=== PATIENT | female | born 1995 | race Caucasian/White ===

== ENCOUNTER 2017-10-27 19:53 | Emergency (ER) | payer OTHER ==
[2017-10-27] MEDS ORDERED: Acetaminophen TAB* 325 MG PO ONE (20:11)
[2017-10-27] MEDS ORDERED: methylPREDNISolone 125 MG* 2 ML VIAL IV ONE (20:47)
[2017-10-27] MEDS ORDERED: NS 0.9% 1000 ML* 1,000 ML IV ONE (20:50)
--- NOTE | 2017-10-27 20:51 | UC ---
Nelli Gong Nilda, scribed for Rosamaria Spann MD on 10/27/17 at 2020 . Throat Pain/Nasal Gregg HPI - HPI Summary HPI Summary: This patient is a 21 year old F presenting to [facility] with a chief complaint of constant severe left-sided sore throat since this morning. The patient rates the aching pain 10/10 in severity. Symptoms aggravated by swallowing and alleviated by ibuprofen (2 tabs) taken at 1630 for fever and pain. Patient reports fever (101.4F), headache, chills, myalgia, L-ear pain with possible drainage, loss of appetite, and nausea. Patient denies V/D and cough. Pt states recent sick contacts at [employer] where she works. No rash. + fatigue. Allergies to Sulfa drugs. LNMP last week. Patients medication reviewed this visit. - History of Current Complaint Chief Complaint: UCRespiratory Stated Complaint: ACHES,CHILLS,EAR,THROAT PAIN Time Seen by Provider: 10/27/17 20:11 Hx Obtained From: Patient Hx Last Menstrual Period: last week ?: No Onset/Duration: Sudden Onset, Lasting Days, Still Present Severity: Severe Pain Intensity: 10 Pain Scale Used: 0-10 Numeric Cough: None Associated Signs & Symptoms: Positive: Other - fever (101.4F), headache, chills , myalgia, L-ear pain with possible drainage, loss of appetite, and nausea. Patient denies V/D and cough. - Allergies/Home Medications Allergies/Adverse Reactions: Allergies Allergy/AdvReac Type Severity Reaction Status Date / Time Sulfa (Sulfonamide Allergy Hives Verified 10/27/17 20:02 Antibiotics) Home Medications: Home Medications Bcp 1 tab PO DAILY 10/27/17 [History Confirmed 10/27/17] Ibuprofen [Goodsense Ibuprofen] 400 mg PO Q8HR PRN 10/27/17 [History Confirmed 10/27/17] PMH/Surg Hx/FS Hx/Imm Hx Previously Healthy: Yes - Surgical History Surgical History: Yes Surgery Procedure, Year, and Place: wisdom - Family History Known Family History: Negative: Cardiac Disease, Hypertension, Diabetes - Social History Occupation: Employed Part-time, Student Lives: With Family Alcohol Use: Rare Substance Use Type: None Smoking Status (MU): Never Smoked Tobacco - Immunization History Vaccination Up to Date: Yes Review of Systems Constitutional: Fever, Chills ENT: Sore Throat, Ear Ache - with drainage (left) Respiratory: Other - negative cough Gastrointestinal: Nausea, Other - loss of appetite; negative V/D Musculoskeletal: Myalgia Neurological: Headache All Other Systems Reviewed And Are Negative: Yes Physical Exam Triage Information Reviewed: Yes Appearance: Well-Nourished, Other: - tired apperaing, face flushed Vital Signs: Initial Vital Signs Temp 103.6 F 10/27/17 20:04 Pulse 118 10/27/17 20:04 Resp 18 10/27/17 20:04 BP 136/82 10/27/17 20:04 Pulse Ox 99 10/27/17 20:04 Vital Signs Reviewed: Yes Eye Exam: Normal Eyes: Positive: Conjunctiva Clear ENT: Positive: Other - left TM + fluid, mild erythema right TM wnl turbinates inflammed and boggy + PND + tonsillar edema no exudate uvula midline Dental Exam: Normal Neck: Positive: Supple, Nontender. Negative: No Lymphadenopathy - + submand LA L>R Respiratory Exam: Normal Respiratory: Positive: Chest non-tender, Lungs clear, Normal breath sounds, No respiratory distress, No accessory muscle use Cardiovascular: Positive: RRR, No Murmur, Pulses Normal, Brisk Capillary Refill , Tachycardia Abdominal Exam: Normal Abdomen Description: Positive: Nontender, No Organomegaly, Soft Bowel Sounds: Positive: Present Musculoskeletal Exam: Normal Musculoskeletal: Positive: Strength Intact Neurological Exam: Normal Neurological: Positive: Alert Psychological Exam: Normal Skin: Positive: Other - face flushed, warm Re-Evaluation - Re-Evaluation First Eval Re-Evaluation Time: 21:03 Comment: Pt declined viscous lidocaine. Updated mother on results and treatment plan. Pt tolerating popsicle and peanut butter cu p Second Eval Change: Improved - Pt markedly improved temp improved, still with mylagia low back and legs will Rx zithromax (no pcn in case + mono) reviewwed motrin/apap prednisone return precaution school/worl note secretion precaution mom and pt comfortable and in agreement with plan Throat Pain/Nasal Course/Dx - Course Course Of Treatment: pt presents with fever, sore throat, left ear pain, myalgia. left OM on exam. Pt with tonsillar edema but no concern for airway compromise. Will give IVF, steroid, antipyretic, zofran. lab for mono, cbc. abx. close reassessment - Differential Dx/Diagnosis Provider Diagnoses: left OM. pharyngitis. fever. myalgias Discharge - Sign-Out/Discharge Documenting (check all that apply): Discharge - Discharge Plan Condition: Stable Disposition: HOME Prescriptions: Azithromycin TAB* [Zithromax TAB (Z-DIANE) 250 mg #6 tabs] 500 mg PO DAILY #12 tab predniSONE TAB* [Deltasone TAB*] 40 mg PO DAILY #8 tab Patient Education Materials: Fever in Adults (ED), Ear Infection (ED) Forms: *School Release, *Work Release Referrals: Taran Castillo MD [Primary Care Provider] - Additional Instructions: - Stay well hydrated. Drink plenty of non-alcoholic, non-caffinated beverages. Cold foods / beverages may be soothing to your throat - Alternate ibuprofen (Advil, Motrin) 600mg and Tylenol 1000mg every 3 hours for pain or fever. Take with food. Do NOT take for more than 4-5 days. - These infections are spread by secretions - do NOT share eating or drinking utensils - clean items you share with other people such as cell phones, computer mouse, TV remote, computer tablets,etc. After you have been on antibiotics for 2 days, change your toothbrush and your pillowcase. - get plenty of restful sleep - humidify the air in the room where you sleep - boil water, run a hot steam shower, vaporizer, cups of water by heat register - okay to take over the counter decongestant and cough medication - gargle and spit with warm salt water - Take antibiotics as prescribed until gone - contact your doctor to schedule a follow-up appointment. Contact your doctor , return here or go to the emergency department with ANY questions or concerns - Billing Disposition and Condition Condition: STABLE Disposition: HOME The documentation as recorded by the Nelli santos Nilda accurately reflects the service I personally performed and the decisions made by me, Rosamaria Spann MD.
[2017-10-27] MEDS: Lidocaine 2% VISCOUS* 15 ML UDC PO ONE ×2 (20:59→21:15)
[2017-10-27] MEDS ORDERED: Azithromycin TAB* 250 MG PO ONE (21:32)
[2017-10-27 21:48] VITALS: BP 129/73
[2017-10-28 10:50] LABS: ABS Basophils 0 10^3/ul (0-0.2); ABS Eosinophils 0 10^3/ul (0-0.6); ABS Lymphocytes 1.1 10^3/ul (1.0-4.8); ABS Monocytes 0.8 10^3/ul (0-0.8); ABS Neutrophils 12.7 10^3/ul (1.5-7.7); ABS Nucleated RBC 0 10^3/ul; Eosinophil % 0.2 % (0-6); Hematocrit 41 % (35-47); Hemoglobin 14.1 g/dl (12.0-16.0); Lymphocyte % 7.7 % (25-47); Mean Corpuscular HGB Conc 34 g/dl (31-36); Mean Corpuscular Hemoglobin 29 pg (27-31); Mean Corpuscular Volume 86 fL (80-97); Mean Platelet Volume 8.9 um3 (7.4-10.4); Nucleated Red Blood Cells % 0.1; Platelet Count 230 10^3/ul (150-450); Red Blood Count 4.78 10^6/ul (4.0-5.4); Red Cell Distribution Width 13 % (10.5-15); White Blood Count 14.8 10^3/ul (3.5-10.8)
== END 2017-10-27 22:05 | disposition home or self-care (01) ==
LOC: UCEAST 19:53
DX: J02.9 Acute pharyngitis, unspecified (principal); R50.9 Fever, unspecified; R51 Headache; M79.1 Myalgia; H92.02 Otalgia, left ear; R11.0 Nausea; Z88.2 Allergy status to sulfonamides
CPT/HCPCS: 36415; 85025; 86308; 87502; 87651; 96374; 99212; A9270-GY; G0463; J2930

== ENCOUNTER 2018-04-27 09:33 | Emergency (ER) | payer BC, OTHER ==
[2018-04-27 09:51] VITALS: BP 117/75
--- NOTE | 2018-04-27 11:10 | ED ---
Throat Pain/Nasal Congestion - HPI Summary HPI Summary: Patient here with URI symptoms 4 days. Reports she started with nasal congestion Thursday night which progressed the following day into sinus pain and pressure and a sore throat. She is now having difficulty hearing out of her ears due to congestion but no otorrhea or sharp pain and no reports of issues with balance. She had an episode of vomiting Thursday night - possibly from postnasal drip and congestion. Denies any nausea, vomiting, diarrhea since. She also denies neck stiffness, chest pain, cough, shortness of breath, difficult deep breathing, abdominal pain, rash, joint aches. 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 She tried ibuprofen which helped with her sinus pain and pressure but has not tried any other remedies at this time. Immunizations are up-to-date. - History of Current Complaint Chief Complaint: UCGeneralIllness Time Seen by Provider: 04/27/18 10:50 Hx Obtained From: Patient - Allergies/Home Medications Allergies/Adverse Reactions: Allergies Allergy/AdvReac Type Severity Reaction Status Date / Time Sulfa (Sulfonamide Allergy Hives Verified 04/27/18 09:44 Antibiotics) PMH/Surg Hx/FS Hx/Imm Hx Previously Healthy: Yes Endocrine/Hematology History: Denies: Hx Diabetes, Hx Thyroid Disease Cardiovascular History: Denies: Hx Hypertension, Hx Pacemaker/ICD Respiratory History: Denies: Hx Asthma, Hx Chronic Obstructive Pulmonary Disease (COPD) GI History: Denies: Hx Ulcer Musculoskeletal History: Denies: Hx Arthritis, Hx Rheumatoid Arthritis, Hx Osteoporosis Sensory History: Denies: Hx Hearing Aid Psychiatric History: Denies: Hx Panic Disorder - Surgical History Surgery Procedure, Year, and Place: wisdom teeth removal. cysts removed from scalp- 2016 - Immunization History Immunizations Up to Date: Yes Infectious Disease History: No Infectious Disease History: Denies: Hx Clostridium Difficile, Hx Hepatitis, Hx Human Immunodeficiency Virus (HIV), Hx of Known/Suspected MRSA, Hx Shingles, Hx Tuberculosis, Hx Known/ Suspected VRE, Hx Known/Suspected VRSA, History Other Infectious Disease, Traveled Outside the [place] in Last 30 Days - Family History Known Family History: Negative: Cardiac Disease, Hypertension, Diabetes - Social History Occupation: Employed Full-time - daycare provider Lives: With Family Alcohol Use: Occasionally Hx Substance Use: No Substance Use Type: Reports: None Hx Tobacco Use: No Smoking Status (MU): Never Smoked Tobacco Review of Systems Constitutional: Negative Negative: Fever, Chills, Fatigue Eyes: Negative Positive: Sore Throat, Ear Ache, Nasal Discharge Cardiovascular: Negative Respiratory: Negative Gastrointestinal: Negative Positive: no symptoms reported Musculoskeletal: Negative Skin: Negative Neurological: Negative Psychological: Normal All Other Systems Reviewed And Are Negative: Yes Physical Exam Triage Information Reviewed: Yes Vital Signs On Initial Exam: Initial Vitals Temp Pulse Resp BP Pulse Ox 98.3 F 97 20 117/75 99 04/27/18 09:45 04/27/18 09:45 04/27/18 09:45 04/27/18 09:45 04/27/18 09:45 Vital Signs Reviewed: Yes Appearance: Positive: Well-Appearing, No Pain Distress, Well-Nourished Skin: Positive: Warm, Skin Color Reflects Adequate Perfusion, Dry - no rash, especially on hands, feet and in mouth Head/Face: Positive: Normal Head/Face Inspection Eyes: Positive: Normal, EOMI, Conjunctiva Clear. Negative: Conjunctiva Inflammed, Discharge ENT: Positive: Hearing grossly normal, Pharyngeal erythema - cobblestoning (mild ) - pink w/ streaking of erythema - no maurice edema, Nasal congestion, TM dull - clear but retracted w/ air bubbles, Uvula midline. Negative: Nasal drainage, Tonsillar swelling, Tonsillar exudate, Trismus, Muffled voice, Hoarse voice, Sinus tenderness Neck: Positive: Supple, Nontender, No Lymphadenopathy Respiratory/Lung Sounds: Positive: Clear to Auscultation, Breath Sounds Present. Negative: Rales, Rhonchi, Wheezes Cardiovascular: Positive: Normal, RRR, S1, S2. Negative: Murmur, Rub Abdomen Description: Positive: Nontender, No Organomegaly, Soft Bowel Sounds: Positive: Present Musculoskeletal: Positive: Normal, Strength/ROM Intact Neurological: Positive: Normal, Sensory/Motor Intact, Alert, Oriented to Person Place, Time, CN Intact II-III Psychiatric: Positive: Normal Diagnostics - Vital Signs Vital Signs Temp Pulse Resp BP Pulse Ox 04/27/18 09:45 98.3 F 97 20 117/75 99 - Laboratory Lab Statement: Any lab studies that have been ordered have been reviewed, and results considered in the medical decision making process. EENT Course/Dx - Course Course Of Treatment: Suspect viral URI - rapid strep neg. Supportive care w/ f/ u PRN. Danger s/sx reviewed. - Diagnoses Provider Diagnoses: URI (upper respiratory infection) Discharge - Sign-Out/Discharge Documenting (check all that apply): Patient Departure All imaging exams completed and their final reports reviewed: No - Discharge Plan Condition: Stable Disposition: HOME Patient Education Materials: Upper Respiratory Infection (ED) Forms: *Work Release Referrals: Taran Castillo MD [Primary Care Provider] - Additional Instructions: You appear to have a viral infection, This may last 7-14 days. Try the following for relief of congestion: *Nasal wash (netti pot or saline spray) & salt water throat gargles 2 x day *Sudafed *if these are not effective, try Afrin - follow instructions to avoid rebound swelling Drink you body weight in ounces of water every day Sleep 8+ hours per night Avoid Dairy and sugar Hot herbal/decaf tea with lemon & honey Chicken broth (preferably organic, free range chicken) Humidifier in house, but especially near bed at night Keep home temperature at 68F or less to reduce dryness Use cough drops/throat lozenges Try a facial steam with or without eucalyptus essential oil or Javad's Vapor rub for congestion Avoid smoke, candles, perfumes, colognes, scented soaps/detergents , air fresheners and cleaning chemicals as these can cause airway irritation and trigger coughing If worse or symptoms persist beyond 14 days, follow-up with PCP or seek alternative medical attention (ie. urgent care, ED) - Billing Disposition and Condition Condition: STABLE Disposition: Home
--- NOTE | 2018-04-28 12:34 | UC ---
- Progress Note Progress Note: No studies Course/Dx - Diagnoses Provider Diagnoses: URI (upper respiratory infection) Discharge - Sign-Out/Discharge Documenting (check all that apply): Post-Discharge Follow Up All imaging exams completed and their final reports reviewed: No Studies - Discharge Plan Condition: Stable Disposition: HOME Patient Education Materials: Upper Respiratory Infection (ED) Forms: *Work Release Referrals: Taran Castillo MD [Primary Care Provider] - Additional Instructions: You appear to have a viral infection, This may last 7-14 days. Try the following for relief of congestion: *Nasal wash (netti pot or saline spray) & salt water throat gargles 2 x day *Sudafed *if these are not effective, try Afrin - follow instructions to avoid rebound swelling Drink you body weight in ounces of water every day Sleep 8+ hours per night Avoid Dairy and sugar Hot herbal/decaf tea with lemon & honey Chicken broth (preferably organic, free range chicken) Humidifier in house, but especially near bed at night Keep home temperature at 68F or less to reduce dryness Use cough drops/throat lozenges Try a facial steam with or without eucalyptus essential oil or Javad's Vapor rub for congestion Avoid smoke, candles, perfumes, colognes, scented soaps/detergents , air fresheners and cleaning chemicals as these can cause airway irritation and trigger coughing If worse or symptoms persist beyond 14 days, follow-up with PCP or seek alternative medical attention (ie. urgent care, ED) - Billing Disposition and Condition Condition: STABLE Disposition: Home
== END 2018-04-27 11:48 | disposition home or self-care (01) ==
LOC: UCEAST 09:33
DX: J06.9 Acute upper respiratory infection, unspecified (principal); Z88.2 Allergy status to sulfonamides
CPT/HCPCS: 87651; 99211; G0463

== ENCOUNTER 2018-10-21 11:21 | Emergency (ER) | payer BC ==
[2018-10-21 14:10] VITALS: BP 115/80
--- NOTE | 2018-10-21 14:38 | UC ---
Abdominal Pain Female HPI - HPI Summary HPI Summary: 22 y/o female presents the urgent care c/o LLQ acute abdominal pain for the past 3 days. Pt reports it is intermittent and stabbing at time. Pain now is 6/ 10. But over night it was like a 9/10 and kept her awake. She ate normally this morning and has been drinking fluids, and had a normal BM. Her Mother gave her a muscle relaxer think it was muscular, but pain didn't improved. LMP: 2018 w/ regular menstrual cycles. Pt had nausea w/ no vomiting the first 2 days , but it resolved today. Pt Pt is sexually active, but not taking any OCP. Pt denies fever, STD's SOB, chest pain, abdominal pain, urinary symptoms, vaginal discharge, blood in the stool - History of Current Complaint Chief Complaint: UCGU Stated Complaint: LT SIDE STOMACH PAIN Time Seen by Provider: 10/21/18 14:10 Hx Obtained From: Patient Hx Last Menstrual Period: 10/01/18 Onset/Duration: Gradual Onset, Lasting Days - 3 days, Still Present, Worse Since - last night Timing: Intermittent Episodes Lasting: - minutes Severity Initially: Mild Severity Currently: Moderate Pain Intensity: 6 Pain Scale Used: 0-10 Numeric Location: Discrete At: LLQ Radiates: No Character: Sharp, Other - stabbing at times Aggravating Factor(s): Other: - after she urinates or have a BM Alleviating Factor(s): Nothing Associated Signs and Symptoms: Positive: Nausea. Negative: Diaphoresis, Fever, Cough, Chest Pain, Dizzy, Back Pain, Constipation, Blood in Stool, Urinary Symptoms, Decreased Appetite, Vaginal Bleeding, Vaginal Discharge, Vomiting, Diarrhea Allergies/Adverse Reactions: Allergies Allergy/AdvReac Type Severity Reaction Status Date / Time Sulfa (Sulfonamide Allergy Hives Verified 10/21/18 12:10 Antibiotics) PMH/Surg Hx/FS Hx/Imm Hx Previously Healthy: Yes - Pt deneis PMHX - Surgical History Surgical History: Yes Surgery Procedure, Year, and Place: wisdom teeth removal. cysts removed from scalp- 2016 - Family History Known Family History: Negative: Cardiac Disease, Hypertension, Diabetes Family History: Thyroid cancer - Social History Occupation: Student Lives: With Family Alcohol Use: Occasionally Substance Use Type: None Smoking Status (MU): Never Smoked Tobacco - Immunization History Vaccination Up to Date: Yes Review of Systems All Other Systems Reviewed And Are Negative: Yes Constitutional: Positive: Negative Skin: Positive: Negative Eyes: Positive: Negative ENT: Positive: Negative Respiratory: Positive: Negative Cardiovascular: Positive: Negative Gastrointestinal: Positive: Abdominal Pain - LLQ, Nausea. Negative: Vomiting, Diarrhea Genitourinary: Positive: Frequency. Negative: Vaginal/Penile Burning, Vaginal/ Penile Itching, Vaginal/Penile Discharge, Vaginal/Penile Tenderness, Abnormal Bleeding Motor: Positive: Negative Neurovascular: Positive: Negative Musculoskeletal: Positive: Negative Neurological: Positive: Negative Psychological: Positive: Negative Is Patient Immunocompromised?: No Physical Exam - Summary Physical Exam Summary: Vital Signs Reviewed: Yes General:Patient is a well developed and nourished female who is sitting comfortable in the examining table. Patient is not in any acute respiratory distress. Eyes: Positive: Conjunctiva Clear - PERRLA, EOMI, fundi grossly normal ENT: Positive: Normal ENT inspection, Hearing grossly normal, Pharynx normal, TMs normal Neck: Positive: Supple, Nontender, No Lymphadenopathy Respiratory: Positive: Chest non-tender, Lungs clear, Normal breath sounds, No respiratory distress Cardiovascular: Positive: RRR,S1 and S2 present, No Murmur, Pulses Normal, Brisk Capillary Refill Abdomen Description: Positive: Nontender, Other: - Abd: Flat with no distention. No surface trauma, scars, incisions. hyperactive bowel sounds present in all four quadrants. No tenderness, guarding, rigidity to palpation. No masses palpated, no pulsation in epigastric area. No organomegaly. Negative [place] signs. No periumbilical tenderness. No rebound in the lower quadrants. NT over [place] point. Left side suprapubic tenderness with no distension. Good femoral pulses bilaterally. No hernia noted. No CVAT bilaterally Musculoskeletal: Positive: Strength Intact, ROM Intact, No Edema,FROM in all major joints, no edema, no cyanosis or clubbing. Neuro: Alert and oriented x 3. No acute neurological deficits. Speech is normal. Psychological: WNL Skin: Dry and warm Triage Information Reviewed: Yes Vital Signs: Initial Vital Signs Temp 98.4 F 10/21/18 12:07 Pulse 69 10/21/18 12:07 Resp 17 10/21/18 12:07 BP 117/77 10/21/18 12:07 Pulse Ox 100 10/21/18 12:07 Abd Pain Female Course/Dx - Course Course Of Treatment: Transvaginal US; Impression: There is a trace amount of free to peritoneal fluid in the cul-de-sac.IMPRESSION: NO EVIDENCE FOR OVARIAN TORSION OR ACUTE FINDING. - Differential Dx/Diagnosis Differential Diagnosis: Appendicitis, Ovarian Cyst, , Renal Colic, Urinary Tract Infection Provider Diagnosis: Acute abdominal pain in left lower quadrant, Follicular cyst of ovary, unspecified side Discharge - Sign-Out/Discharge Documenting (check all that apply): Patient Departure - d/C home All imaging exams completed and their final reports reviewed: Yes - Discharge Plan Condition: Stable Disposition: HOME Patient Education Materials: Acute Abdominal Pain (ED) Referrals: Taran Castillo MD [Primary Care Provider] - 2 Days Armida Owens MD [Medical Doctor] - 2 Days Additional Instructions: 1-Please take ibuprofen PO q6-8hrs prn as instructed after meals to alleviate pain and swelling. Increase fluid intake, eat well, rest and avoid strenuous exercise 2- Abdominal CT: negative. Pelvic US presents w/ trace of free peritoneal at the cul de sac which can be the cause of your pain. Please if pain wore go immediately to the ER for further management. Otherwise s/u w/ [facility] DR Owens for further evaluation and treatment if not improvement. - Billing Disposition and Condition Condition: STABLE Disposition: Home
== END 2018-10-21 15:45 | disposition home or self-care (01) ==
LOC: UCEAST 11:21
DX: R10.32 Left lower quadrant pain (principal); N83.02 Follicular cyst of left ovary; N83.01 Follicular cyst of right ovary; Z32.02 Encounter for pregnancy test, result negative; Z88.2 Allergy status to sulfonamides
CPT/HCPCS: 74176; 76830; 81003; 84702; 99212; G0463

== ENCOUNTER 2018-12-20 07:27 | Emergency (ER) | payer BC ==
--- OUTSIDE RECORDS SUMMARY | 2018-12-20 07:36 | XMS REPORT | Continuity of Care Document ---
:1995 External Reference #:[id number] Author Name Whit Erazo NP Address [address] [facility] [place] [address] Care Team Providers Name Role Phone Taran Castilol MD Care Team Information Vending Machine Collector Unavailable Taran Castillo MD Primary Care Physician Unavailable Payers Date Identification Numbers Payment Provider Subscriber Effective: 2018 Policy Number: [id number] BC/BS Of [employer]US[employer]E Montoya PayID: [id number] [address] [place] [id number] Effective: 2016 Policy Number: [id number] BC/BS Of [employer]E Montoya Expires: 2018 PayID: [id number] [address] [place] [phone] Advance Directives Description No Information Available Problems Active Problems Provider Date Epidermoid cyst Taran Castillo M.D. Onset: 02/14/2016 Migraine without aura, not refractory Taran Castillo M.D. Onset: 02/14/2016 Allergic rhinitis Taran Castillo M.D. Onset: 02/14/2016 Family History Date Family Member(s) Observation Comments Mother Thyroid Disease papillary carcinoma First Brother Fdiyi-Ujwkrzgri-Nvgma pattern Social History Type Date Description Comments Sex Unknown Tobacco Use Start: Unknown Patient has never smoked Smoking Status Reviewed: 08/19/17 Patient has never smoked Allergies, Adverse Reactions, Alerts Active Allergies Reaction Severity Comments Date Sulfa hives 05/28/2017 Inactive Allergies NKDA 02/14/2016 Medications Active Medications SIG Qnty Indications Ordering Provider Date Triamcinolone Acetonide apply to affected 15gm L20.9 Whit Cabrera 12/02/2018 skin on hands, DEBBI Erazo 0.1% Cream back, and trunk twice daily as needed for up to 14 days History Medications No Active Unknown 12/02/2018 - Medications 12/02/2018 No Active Unknown 09/30/2018 - Medications 09/30/2018 Amoxicillin 1 by mouth three 30caps J01.90 Yamini Aminata, 09/30/2018 - 500mg times a day x 10d STEMHOLE BORER 12/02/2018 Capsules Note Due To Health Brent was seen J01.90 Yamini Coates, 09/30/2018 - Issues by me today for STEMHOLE BORER 12/02/2018 illness and may not return to work today or tomorrow, may return 4\\2\\19 Ortho-Cyclen (28) take 1 tablet by 84tabs Ines 04/14/2018 - mouth every day as Maco, 09/29/2018 0.25-35mg-mcg directed Afnp-C Tablets Zanaflex take one by mouth 30caps R51 Whit Cabrera 03/18/2018 - 4mg Capsules 3 times daily as DEBBI Erazo 09/29/2018 needed for pain Valtrex take one by mouth 7tabs A60.04 Whit Cabrera 11/04/2017 - 1gm Tablets daily until gone DEBBI Erazo 03/18/2018 Estarylla Take one by mouth 84tabs Whit Cabrera 08/19/2017 - daily, ok to skip DEBBI Erazo 09/29/2018 0.25-35mg-mcg placebo pills for Tablets continuous cycling, please refill 21 days early Rizatriptan Benzoate take at first sign 14tabs R51 Whit Cabrera 06/17/2017 - of headache. whitney Erazo NP 08/19/2017 10mg Tablets repeat once after 2 hours. Do not use more than 3 days per week. Nasonex 1 spray in each 51gm J32.8 Whit Cabrera 06/17/2017 - 50mcg/Act nostril twice DEBBI Erazo 08/19/2017 Suspension daily Indomethacin take one by mouth 10caps J01.10 Whit Cabrera 05/28/2017 - 50mg three times daily DEBBI Erazo 08/19/2017 Capsules as needed for pain Barryton take 1-2 by mouth 6tabs J01.10 Whit Cabrera 05/28/2017 - 5-325mg Tablets 3 times daily as DEBBI Erazo 08/19/2017 needed for severe pain Fluticasone 2 sprays each 16units J30. Taran Lares 02/14/2016 - Propionate nostril every Raymon Castillo 05/27/2017 50mcg/Act night at bedtime Suspension Joycelyn Allergy 1 by mouth once a J30.89 Taran Lares 02/14/2016 - 180mg day Raymon Castillo 05/27/2017 Tablets Naproxen 1 by mouth two 20tabs J30.89 Taran Lares 02/14/2016 - 375mg times a day as Raymon Castillo 05/27/2017 Tablets needed for headache Control Pill 1 po qd Unknown - 08/19/2017 Amoxicillin 1 by mouth three Unknown - 500mg times a day x 10d 06/17/2017 Capsules Aviane 1 by mouth every Unknown - 0.1-20mg-mcg day 08/19/2017 Tablets Medications Administered in Office Medication SIG Qnty Indications Ordering Provider Date TB Intradermal Test SAMMIE House 08/19/2017 Injection Immunizations Description No Information Available Vital Signs Date Vital Result Comment 12/02/2018 5:16pm BP Systolic 100 mmHg BP Diastolic 78 mmHg Heart Rate 90 /min Body Temperature 98.5 F Respiratory Rate 17 /min Weight 185.00 lb 09/30/2018 11:26am BP Systolic 116 mmHg BP Diastolic 82 mmHg Heart Rate 90 /min Body Temperature 98.4 F Weight 178.00 lb 03/18/2018 1:39pm BP Systolic 124 mmHg BP Diastolic 72 mmHg Heart Rate 64 /min Body Temperature 98.5 F Respiratory Rate 16 /min Weight 172.50 lb 11/04/2017 1:17pm BP Systolic 118 mmHg BP Diastolic 80 mmHg Heart Rate 72 /min Body Temperature 98.4 F Respiratory Rate 16 /min Weight 164.00 lb 08/19/2017 9:52am BP Systolic 118 mmHg BP Diastolic 80 mmHg Heart Rate 80 /min Body Temperature 97.7 F Respiratory Rate 18 /min Height 63 inches 5'3" Weight 162.25 lb BMI (Body Mass Index) 28.7 kg/m2 Right Visual Acuity Distance 20/20 Left Visual Acuity Distance 20/20 06/17/2017 5:25pm BP Systolic 116 mmHg BP Diastolic 60 mmHg Heart Rate 78 /min Body Temperature 99.0 F Respiratory Rate 16 /min Height 63 inches 5'3" Weight 167.00 lb BMI (Body Mass Index) 29.6 kg/m2 05/28/2017 5:28pm BP Systolic 106 mmHg BP Diastolic 60 mmHg Heart Rate 68 /min Body Temperature 98.8 F Respiratory Rate 16 /min Height 63 inches 5'3" Weight 170.00 lb BMI (Body Mass Index) 30.1 kg/m2 02/14/2016 6:42pm BP Systolic 120 mmHg BP Diastolic 70 mmHg Heart Rate 72 /min Body Temperature 98.1 F Respiratory Rate 16 /min Height 63 inches 5'3" Weight 165.00 lb BMI (Body Mass Index) 29.2 kg/m2 Results Test Date Facility Test Result H/L Range Note Laboratory test 10/21/2018 [facility] Poc , Negative Negative 1 finding Urine Poc Urinalysis 10/21/2018 [facility] Poc Glucose, Negative Negative Urine Poc Bilirubin, Urine Negative Negative Poc Ketone, Urine Negative Negative Poc Specific [place], Urine 1.010 N 1.010-1.030 Poc Blood, Urine Negative Negative Poc pH, Urine 7.0 N 5-9 Poc Protein, Urine Negative Negative Poc Urobilinogen, Urine 0.2 Negative Poc Nitrite, Urine Negative Negative Poc Leukocytes, Urine Negative Negative Poc Color, Urine Light yellow Poc Clarity, Urine Clear 2 Laboratory test 04/27/2018 [facility] Rapid Strep Negative Negative 3 finding Molecular Metabolic Panel (14), 03/18/2018 [facility] Glucose 91 mg/dL 65-99 Comprehensive [address] [place] [address] (606)- - BUN 11 mg/dL 6-20 Creatinine 0.83 mg/dL 0.57-1.00 eGFR If NonAfricn Am 101 mL/min/1.73 >59 eGFR If Africn Am 117 mL/min/1.73 >59 BUN/Creatinine Ratio 13 9-23 Sodium 138 mmol/L 134-144 Potassium 4.2 mmol/L 3.5-5.2 Chloride 101 mmol/L 96-106 Carbon Dioxide, Total 21 mmol/L 20-29 Calcium 10.0 mg/dL 8.7-10.2 Protein, Total 7.4 g/dL 6.0-8.5 Albumin 4.6 g/dL 3.5-5.5 Globulin, Total 2.8 g/dL 1.5-4.5 A/G Ratio 1.6 1.2-2.2 Bilirubin, Total <0.2 mg/dL 0.0-1.2 Alkaline Phosphatase 55 IU/L 39-117 Ast (Sgot) 16 IU/L 0-40 Alt (SGPT) 15 IU/L 0-32 Laboratory test 03/18/2018 [facility] TSH 1.870 uIU/mL 0.450-4.500 finding [address] [place] [address] (607)- - CBC Electronic Fma 03/18/2018 [facility](fma) WBC 7.0 x10^3/UL 4.0- 10.0 4 RBC 4.73 x10^6/UL 3.93-6.00 HGB 14.1 g/dL 12.0-17.0 HCT 41 % 35-50 MCV 85.8 fL 80.0-95.0 MCH 29.8 pg 25.6-32.2 MCHC 34.7 g/dL 32.2-36.0 RDW-CV 12.7 % 11.6-14.4 PLT 114 x10^3/UL Low 163-400 5 MPV 12.7 fL High 9.4-12.4 Juan# 3.68 x10^3/UL 1.56-6.13 Lymph# 2.71 x10^3/UL 1.18-3.74 Moca# 0.45 x10^3/UL 0.24-0.82 Eos # 0.1 x10^3/UL 0.0-0.5 Baso # 0.05 x10^3/UL 0.01-0.08 Juan% 52.4 % 34.0-70.0 Lymph % 38.6 % 20.0-52.0 Moca% 6.4 % 5.0-12.0 Eos% 0.9 % 0.7-7.0 Baso% 0.7 % 0.1-1.2 Laboratory test finding 10/27/2017 [facility] Rapid Strep Molecular Negative Negative 6 Rapid Influenza A & B 10/27/2017 [facility] Influenza A Molecular NEGATIVE Negative 7 Molecular Influenza B Molecular NEGATIVE Negative Laboratory test finding 10/27/2017 [facility] Monospot Negative Negative 8 CBC Auto Diff 10/27/2017 [facility] White Blood Count 14.8 10^3/uL High 3.5- 10.8 Red Blood Count 4.78 10^6/uL N 4.0-5.4 Hemoglobin 14.1 g/dL N 12.0-16.0 Hematocrit 41 % N 35-47 Mean Corpuscular Volume 86 fL N 80-97 Mean Corpuscular Hemoglobin 29 pg N 27-31 Mean Corpuscular HGB Conc 34 g/dL N 31-36 Red Cell Distribution Width 13 % N 10.5-15 Platelet Count 230 10^3/uL N 150-450 Mean Platelet Volume 8.9 um3 N 7.4-10.4 Abs Neutrophils 12.7 10^3/uL High 1.5-7.7 Abs Lymphocytes 1.1 10^3/uL N 1.0-4.8 Abs Monocytes 0.8 10^3/uL N 0-0.8 Abs Eosinophils 0 10^3/uL N 0-0.6 Abs Basophils 0 10^3/uL N 0-0.2 Abs Nucleated RBC 0 10^3/uL Granulocyte % 86.1 % High 38-83 Lymphocyte % 7.7 % Low 25-47 Monocyte % 5.7 % N 0-7 Eosinophil % 0.2 % N 0-6 Basophil % 0.3 % N 0-2 Nucleated Red Blood Cells % 0.1 Thyroid Antibody & 06/17/2017 [facility] Thyroid Peroxidase 7 IU/mL 0-[address] [facility] ([facility] [place] [address] [phone])- - Thyroglobulin Antibody <1.0 IU/mL 0.0-0.9 10 Laboratory test finding 06/17/2017 [facility] T3 Uptake 21 % Low 24-39 [address] [place] [address] (608)- - Triiodothyronine (T3) 161 ng/dL 71-180 Laboratory test finding 06/17/2017 [facility](fma) TSH 1.71 mIU/L 0.50-6.00 Free T4 1.12 ng/dL 0.75-1.54 Laboratory test 03/21/2016 [facility] Surgical Pathology SEE RESULT BELOW 11 , 12 finding Laboratory test 02/15/2016 [facility] Thyroperoxidase AB 0.61 IU/mL N <9 13 finding Thyroglobulin AB <1.8 IU/mL N <4.0 14 Laboratory test finding 02/15/2016 [facility](fma) TSH 2.33 mIU/L 0.50-6.00 Free T4 0.85 ng/dL 0.75-1.54 1 [employer] House Attendant: [id number] Test Disclaimer: Positive bacteria, red blood cells, white blood cells, early , low specific gravity, and other factors may cause false positive or negative results. It is recommended to retest unexpected results within 24 to 72 hours with a serum test when applicable. If is still suspected, please repeat test after 48 to 72 hours. 2 [employer] House Attendant: [id number] 3 Fuel House Attendant: [id number] 4 Clotting was noted on peripheral smear, low platelets likely a result of poor sample. 5 interpret with caution plt clumps seen on smear - short draw 6 [employer] House Attendant: [id number] 7 Fuel House Attendant: [id number] 8 Would you like an EBV if Monospot is Negative?: N 9 2sst 10 Thyroglobulin Antibody measured by [employer] 11 [id number] 12 SEE RESULT BELOW Name: BRENT MONTOYA : [address]: To Cool MD Acct: [id number] Unit: [id number] AGE: 20 Location: [facility] Re03/21/16 SEX: F Status: REG REF SPEC: [id number] LAMINE: 03/21/16-[address] [facility] [address]: To Cool MD REQ: [id number] RECD: 03/21/16 STATUS: WU WALLACE DR: Taran Castillo MD _ ORDERED: LEVEL III/2 COMMENTS: [id number] FINAL DIAGNOSIS 1. Skin, frontal scalp, more posterior, excision: -- Pilar cyst. 2. Skin, frontal scalp, more anterior, excision: -- Pilar cyst. PRE-OPERATIVE DIAGNOSIS Pilar cysts GROSS DESCRIPTION 1. The specimen is received in formalin labeled, Excision Frontal Scalp Mass More Posterior, and consists of a 0.9 x 0.8 x 0.6 cm, payne-white, ovoid, previously disrupted cyst containing friable, payne material. The specimen is trisected and submitted entirely in one cassette. 2. The specimen is received in formalin labeled, Excision Frontal Scalp Mass, More Anterior, and consists of a 1.2 x 1.1 x 0.7 cm, payne-white, ovoid intact cyst. The cut surface is yellow-mercedes and waxy. The specimen is inked, serially sectioned and entirely submitted in one cassette. Signed (signature on file) Christiano Dominguez MD 1522 END OF REPORT * ML=Testing performed at Main Lab DEPARTMENT OF PATHOLOGY, [address] [place] [address] Christiano Dominguez M.D. Director [facility] # [id number] 13 [facility] [id number] 14 ADDITIONAL INFORMATION The thyroglobulin antibody testing method is an immunoenzymatic assay manufactured by [employer] and performed on the VenJuvo DXI 800. Values obtained from different assay methods or kits may be different and cannot be used interchangeably. The results cannot be interpreted as absolute evidence for the presence or absence of malignant disease. Test Performed by: [facility] [place] [address] Sales Assistant Displays: Mitchell Maher II, M.D., Ph.D. 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 DEBBI Erazo vulvovaginitis Office Visit 08/21/2017 [facility] Maki Z11.1 Encounter for 1:30p Office Lisy, STEMHOLE BORER screening for respiratory tuberculosis Office Visit 08/19/2017 [facility] Maki Z11.1 Encounter for 10:00a Office Lisy, STEMHOLE BORER screening for respiratory tuberculosis Z00.00 Encntr for general adult medical exam w/o abnormal findings Office Visit 06/17/2017 5:15p Main Office Whit Erazo NP R51 Headache Z85.850 Personal history of malignant neoplasm of thyroid R05 Cough J32.8 Other chronic sinusitis R06.83 Snoring Office Visit 05/28/2017 5:30p Main Office Whit Cabrera J01.10 Acute frontal DEBBI Erazo sinusitis, unspecified R51 Headache Office Visit 02/14/2016 6:40p Main Office Taran Castillo J30.89 Other allergic M.D. rhinitis G43.009 Migraine w/o aura, not intractable, w/o status migrainosus Z85.850 Personal history of malignant neoplasm of thyroid L72.3 Sebaceous cyst Plan of Treatment 12/02/2018 - Whit Erazo NPL20.9 Atopic dermatitis, unspecifiedNew Medication:Triamcinolone Acetonide 0.1 % - apply to affected skin on hands, back , and trunk twice daily as needed for up to 14 daysComments:Be very sparing about using steroid cream around the eyes. Only once daily, not for more than 5 daysin a row. Can use on the arms for up to 10 days in a row if needed.AllComments:1. Patient has been queried about patient's goals/ preferences and functional/lifestyle goals at relevant visits. If relevant, describe: Has been discussed, noted above2. Treatment goals as explainedto the patient: see above3. Are there barriers to meeting treatment goals? Yes If Yes, please describe: Barriers include possible insurance limits, disease process, and difficulty with lifestyle changes4. Self-Management goals as described to the patient: Yes, see above As always, we strongly encourage a healthy diet and making physical activity a part of your every day life. If you have questions about how or where to start, please contact the office.
[2018-12-20 07:42] VITALS: BP 116/72
--- NOTE | 2018-12-20 08:01 | UC ---
Back Pain HPI - HPI Summary HPI Summary: 23 yo female presents with upper back pain. She tells me that 2 days ago she was at work and turned her torso/shoulders to the left and felt a pull in her mid upper back. She took some ibuprofen and went to bed. In the morning her back was very stiff and pain was worse with movement. 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 She took ibuprofen and norco yesterday with mild relief. Today her pain has continued. She mentions that she has about a 5 year history of right shoulder pain without injury and she has difficulty lifting it at times, but has never had this evaluated. She endorses some radiation of pain down her right upper arm. Denies numbness, tingling, SOB, chest pain, or headache. - History of Current Complaint Chief Complaint: UCBackPain Stated Complaint: BACK INJURY Time Seen by Provider: 12/20/18 08:01 Hx Obtained From: Patient Hx Last Menstrual Period: [id number] Onset/Duration: Sudden Onset Timing: Constant Severity Initially: Moderate Severity Currently: Moderate Pain Intensity: 5 Pain Scale Used: 0-10 Numeric - Allergies/Home Medications Allergies/Adverse Reactions: Allergies Allergy/AdvReac Type Severity Reaction Status Date / Time Sulfa (Sulfonamide Allergy Hives Verified 12/20/18 07:42 Antibiotics) PMH/Surg Hx/FS Hx/Imm Hx - Additional Past Medical History Additional PMH: None - Surgical History Surgical History: Yes Surgery Procedure, Year, and Place: wisdom teeth removal. cysts removed from scalp- 2016 - Family History Known Family History: Negative: Cardiac Disease, Hypertension, Diabetes Family History: Thyroid cancer - Social History Lives: With Family Alcohol Use: Occasionally Substance Use Type: None Smoking Status (MU): Never Smoked Tobacco - Immunization History Vaccination Up to Date: Yes Review of Systems All Other Systems Reviewed And Are Negative: Yes Constitutional: Positive: Negative Skin: Positive: Negative Respiratory: Positive: Negative Cardiovascular: Positive: Negative Neurovascular: Positive: Negative Musculoskeletal: Positive: Other: - Mid upper back pain. Right shoulder pain. Neurological: Positive: Negative Psychological: Positive: Negative Physical Exam - Summary Physical Exam Summary: GENERAL: NAD. WDWN. No pain distress. SKIN: No rashes, sores, lesions, or open wounds. CHEST: No accessory muscle use. Breathing comfortably and in no distress. CV: Pulses intact radial and ulnar. Cap refill <2seconds MSK: Trapezius muscles TTP and with mild spasm. Pain reproduced with b/l shoulder flexion. RIGHT shoulder: FROM. Strength 5/5. No edema or obvious bony deformities. Positive empty can, neer, o'leydi. NEURO: Alert. Sensations intact C4-T1 b/l PSYCH: Age appropriate behavior. Triage Information Reviewed: Yes Vital Signs: Initial Vital Signs Temp 98.3 F 12/20/18 07:37 Pulse 82 12/20/18 07:37 Resp 20 12/20/18 07:37 BP 116/72 12/20/18 07:37 Pulse Ox 100 12/20/18 07:37 Vital Signs Reviewed: Yes Back Pain Course/Dx - Course Course Of Treatment: XR shoulder: IMPRESSION: NO ACUTE OSSEOUS INJURY. IF SYMPTOMS PERSIST, RECOMMEND REPEAT IMAGING. Suspect muscle spasm. Will have her continue ibuprofen and encourage her to apply heat. Will rx for flexeril and refer her to Orthopedics for her ongoing shoulder pain, which appears to be RTC pathology in nature. - Differential Dx/Diagnosis Provider Diagnosis: Muscle spasm, Right shoulder pain Discharge - Sign-Out/Discharge Documenting (check all that apply): Patient Departure All imaging exams completed and their final reports reviewed: Yes - Discharge Plan Condition: Stable Disposition: HOME Prescriptions: Cyclobenzaprine TAB* [Flexeril 10 MG TAB*] 10 mg PO TID PRN #21 tab PRN Reason: Pain Patient Education Materials: Rotator Cuff Tendinitis (ED), Muscle Spasm (ED) Forms: *Work Release Referrals: Taran Castillo MD [Primary Care Provider] - Manohar Wong MD [Medical Doctor] - If Needed Additional Instructions: If you develop a fever, shortness of breath, chest pain, new or worsening symptoms - please call your PCP or go to the ED immediately. 1) Rest and apply heat to your back. 2) Continue taking ibuprofen as directed for discomfort 3) The X-Ray of your shoulder was normal today, but there could still be an underlying soft tissue (rotator cuff injury). I recommend that you call Orthopedics at the number below to schedule an appointment regarding your continued right shoulder pain. - Billing Disposition and Condition Condition: STABLE Disposition: Home - Attestation Statements Provider Attestation: Per institutional requirements, I have reviewed the chart, however, I was not consulted specifically or made aware of this patient by the midlevel provider. I did not personally evaluate, interact with , or disposition this patient.
== END 2018-12-20 08:35 | disposition home or self-care (01) ==
LOC: UCEAST 07:27
DX: M62.838 Other muscle spasm (principal); M25.511 Pain in right shoulder
CPT/HCPCS: 99212; G0463

== ENCOUNTER 2019-06-20 13:46 | Day surgery (SDC) | payer BC ==
[~2019-06-20 13:46] MED LIST: Buffered Lidocaine 1% SYRIN* 1 ML/SYRINGE INTRADERM ONE; Famotidine IV* 10 MG/ML 2 ML (20 mg) IV ONE; Lactated Ringers 1000 ML Bag* 1,000 ML IV SCH
[2019-06-20] MEDS ORDERED: ceFAZolin 2 GM PREMIX in ORs 2 GM/50 ML BAG ONE (14:00)
[2019-06-20] MEDS ORDERED: Famotidine IV* 10 MG/ML 2 ML (20 mg) ONE (14:00)
[2019-06-20] MEDS ORDERED: Midazolam* 1 MG/ML 5 ML VIAL (5 MG) ONE (14:20)
[2019-06-20] MEDS ORDERED: ROPIVACAINE 5 MG/ML 30 ML BTL (0.5%) ONE (15:04)
[2019-06-20] MEDS ORDERED: Lidocaine 1% MPF ** 5 ML VIAL ONE (15:04)
[2019-06-20] MEDS ORDERED: Ropivacaine 0.2% * 2 MG/ML VIAL ONE (15:19)
[2019-06-20] MEDS ORDERED: Succinylcholine* 20 MG/ML 10 ML VIAL ONE (15:38)
[2019-06-20] MEDS ORDERED: fentaNYL* 50 MCG/ML 2 ML VIAL (100 MCG VIAL) ONE (15:42)
[2019-06-20] MEDS ORDERED: methylPREDNISolone ACETATE 80* 80 MG/ML 1 ML VIAL ONE (16:22)
[2019-06-20] MEDS ORDERED: Ketorolac INJ* 30 MG/ML 1 ML VIAL ONE (16:50)
[2019-06-20] MEDS ORDERED: Lidocaine 2% PF * 5 ML VIAL ONE (16:50)
[2019-06-20] MEDS ORDERED: Propofol* 10 MG/ML 20 ML BTL ONE (16:50)
[2019-06-20] MEDS ORDERED: Dexamethasone IV* 4 MG/ML 1 ML (4 MG) ONE (16:50)
[2019-06-20] MEDS ORDERED: Ondansetron INJ* 2 MG/ML VIAL ONE (16:50)
[2019-06-20] MEDS ORDERED: DiMENhydriNATE IV* 50 MG/ML VIAL IV PUSH PRN (17:00)
[2019-06-20] MEDS ORDERED: HYDROcodone/ACETAMIN 5-325 MG* 1 TAB PO PRN (17:00)
[2019-06-20] MEDS ORDERED: HYDROmorphone INJ1* 1 MG/ML SYRINGE IV PRN (17:00)
[2019-06-20] MEDS ORDERED: Naloxone* 0.4 MG/ML 1 ML VIAL IV PRN (17:00)
[2019-06-20 18:31] VITALS: BP 115/60
--- NOTE | 2019-07-11 12:35 | OP ---
OPERATIVE REPORT: DATE OF OPERATION: 06/20/19 - ANUJA DATE OF : [birth year] SURGEON: Tricia Power MD TECHNICAL AID: MIR Rodriguez An mortgage assistant was needed for the entirety of the case to help with positioning, retraction, and utilized throughout all portions of the case. ANESTHESIOLOGIST: Dr. Lyman. ANESTHESIA: General interscalene block. PRE-OP DIAGNOSES: 1. Right shoulder impingement. 2. Acromioclavicular joint arthritis. 3. Possible bicipital tendinitis. POST-OP DIAGNOSES: 1. Right shoulder impingement. 2. Acromioclavicular joint arthritis. 3. Possible bicipital tendinitis. OPERATIVE PROCEDURE: Right shoulder arthroscopy with: 1. Extensive glenohumeral debridement including debridement of the anterior, posterior, superior labrum. 2. Subacromial decompression and acromioplasty. 3. Distal clavicle excision. COMPLICATIONS: None. ESTIMATED BLOOD LOSS: Minimal. INDICATIONS: Sara Montoya is a 23-year-old female with persistent shoulder pain. She has failed conservative management. She has had an injection in the AC joint as well as numerous therapy sessions. She has elected to proceed with surgical treatment. Risks and benefits include but not limited to bleeding; infection; damage to nerves, vessels, surrounding structures; wound nonhealing; persistent pain; need for further surgery; scarring; stiffness; incomplete relief of symptoms and risks of anesthesia. DESCRIPTION OF PROCEDURE: The patient was greeted in the preoperative area by the attending surgeon. The correct extremity was marked. Consent was confirmed. The patient underwent interscalene nerve block by the anesthesiologist after which she was brought back to the operating suite, placed in supine position on the operating room table and underwent general anesthesia with endotracheal intubation after which she was positioned in the left lateral decubitus position. With all bony prominences padded, she was secured with a pegboard. The right arm was draped unsterile with 10 pounds of traction. The right shoulder was then prepped and draped in the usual sterile fashion beginning with chlorhexidine soap, scrub, and alcohol wipe and a final prep with ChloraPrep. After appropriate surgical pause indicating site, side, procedure, and administration of antibiotics, the standard posterolateral portal was made sharp with an 11 blade. Scope was introduced into the joint. The joint was examined. There was mild change to the labrum and the glenohumeral joint was intact. The undersurface of the rotator cuff, supraspinatus and subscap were intact. The biceps anchor looked inserted quite well. There was a small amount of fraying which was debrided back but otherwise, the insertion looked good and there was not a lot of erythema, the decision was to leave this. After the intraarticular work was completed, attention was directed to the subacromial space. With the scope positioned in the subacromial space, lateral portal was made in an outside fashion. Shaver was used to debride the abundant bursa that was present back. The undersurface of the acromion was skeletonized using electrocautery device. This revealed an anterolateral spur which was debrided back using a 4-0 oval helen. All loose debris was removed and attention was directed to the clavicle. With the helen positioned in the anterior portal, the distal 8 mm of the clavicle was then removed. After this was completed, all loose debris was removed. The final images were obtained. The wounds were copiously irrigated with sterile saline. The portals were closed with 3-0 nylon. Sterile dressings were applied. A Cryo/Cuff and UltraSling were applied. She was awoken from anesthesia and transferred to PACU in stable condition. POSTOPERATIVE PLAN: She will be nonweightbearing in a sling for about 2 to 3 days. Discharged on pain medication. DVT prophylaxis was considered but deferred due to no previous personal or family history. I will have her start therapy within a week. [id number]/[facility] #: [id number] SOFY
== END 2019-06-20 18:33 | disposition home or self-care (01) ==
LOC: OREAST 13:46
PROVIDERS: ATTEND Orthopaedic Surgery
DX: M75.41 Impingement syndrome of right shoulder (principal); M19.011 Primary osteoarthritis, right shoulder; G89.18 Other acute postprocedural pain
CPT/HCPCS: 81025; J0330; J0690; J1040; J1100; J1885; J2250; J2405; J2704; J2795; J3010

== ENCOUNTER 2021-07-24 20:02 | Inpatient (IN) ==
[2021-07-25] MEDS ORDERED: Lactated Ringers 1000 ml BAG 1,000 ML IV ONE (03:36)
[2021-07-25] MEDS ORDERED: Penicillin G Potassium IV 5,000,000 UNITS in NS 0.9% 100 ml BAG 100 ML IVPB ONE (04:00)
[2021-07-25] MEDS ORDERED: Penicillin G Potassium IV 3,000,000 UNITS in NS 0.9% 100 ml BAG 100 ML IVPB SCH (04:00)
[2021-07-25 04:30] LABS: ABS Basophils 0.1 10^3/ul (0-0.2); ABS Lymphocytes 1.9 10^3/ul (1.0-4.8); ABS Monocytes 0.7 10^3/ul (0-0.8); Eosinophil % 0.1 %; Hematocrit 34 % (35-47); Hemoglobin 11.1 g/dL (12.0-16.0); Lymphocyte % 14.1 %; Mean Corpuscular HGB Conc 33 g/dL (31-36); Mean Corpuscular Hemoglobin 27 pg (27-31); Mean Corpuscular Volume 81 fL (80-97); Platelet Count 196 10^3/uL (150-450); Red Blood Count 4.12 10^6 /uL (3.70-4.87); Red Cell Distribution Width 14 % (10-15); White Blood Count 13.7 10^3/uL (3.5-10.8)
[2021-07-25 04:46] LABS: Urine Benzodiazepine Screen None Detected (None Detect); Urine Cannabinoids Screen None Detected (None Detect); Urine Opiates Screen None Detected (None Detect)
[2021-07-25] MEDS: Penicillin G Potassium IV 3,000,000 UNITS in NS 0.9% 100 ml BAG 100 ML IVPB SCH ×3 (08:29→16:24)
[2021-07-25] MEDS ORDERED: Oxytocin in LR 0 UNITS/0 ML BAG IVPB ONE (18:16)
[2021-07-25] MEDS ORDERED: Dibucaine 1% OINT 28.35 GM TUBE PR PRN (19:24)
[2021-07-25] MEDS ORDERED: Glycerin ADULT 2.4 gm SUPP PR PRN (19:24)
[2021-07-25] MEDS ORDERED: Measles, Mumps,Rubella VACC 0.5 ML/VIAL SUBCUT ONE (19:24)
[2021-07-25] MEDS ORDERED: Witch Hazel PAD JAR TOPICAL PRN (19:24)
[2021-07-25] MEDS ORDERED: Lactated Ringers 1000 ml BAG 1,000 ML IV SCH (20:00)
[2021-07-25] MEDS ORDERED: Calcium Carb (TUMS) 500 mg CHEW TAB PO PRN (21:39)
[2021-07-26] MEDS: Penicillin G Potassium IV 3,000,000 UNITS in NS 0.9% 100 ml BAG 100 ML IVPB SCH (02:02)
[2021-07-26 06:53] LABS: ABS Basophils 0.1 10^3/ul (0-0.2); ABS Monocytes 1.5 10^3/ul (0-0.8); ABS Neutrophils 15.6 10^3/ul (1.5-7.7); Eosinophil % 0.1 %; Hematocrit 26 % (35-47); Hemoglobin 8.4 g/dL (12.0-16.0); Mean Corpuscular HGB Conc 33 g/dL (31-36); Mean Corpuscular Hemoglobin 27 pg (27-31); Mean Corpuscular Volume 82 fL (80-97); Mean Platelet Volume 9.4 fL (7.4-10.4); Nucleated Red Blood Cells % 0.1; Platelet Count 164 10^3/uL (150-450); Red Blood Count 3.12 10^6 /uL (3.70-4.87); Red Cell Distribution Width 15 % (10-15); White Blood Count 20.2 10^3/uL (3.5-10.8)
[2021-07-27 09:19] VITALS: BP 134/79
== END 2021-07-27 17:09 | disposition home or self-care (01) | DRG 560 ==
LOC: EDACCT# → MCHOBOUT 20:02 → MCHOB 07-25 03:35
PROVIDERS: ADMIT Midwife; ATTEND Midwife